=== PATIENT | male | born 1940 | race Caucasian/White ===

== ENCOUNTER 2023-05-20 07:00 | Day surgery (SDC) | payer MEDICARE, OTHER ==
[~2023-05-20] VITALS: Ht 175.3 cm; Wt 98.2 kg
[2023-05-20] MEDS ORDERED: VITA100093 PO (07:31)
[2023-05-20] MEDS ORDERED: MAGN400T2 PO (07:31)
[2023-05-20] MEDS ORDERED: B-12100010 PO (07:31)
[2023-05-20] MEDS ORDERED: ATEN25TA PO (07:31)
[2023-05-20] MEDS ORDERED: PRAD150C6 PO (07:31)
[2023-05-20] MEDS ORDERED: ALFU10TA3 PO (07:31)
[2023-05-20] MEDS ORDERED: PANT40TA29 PO (07:31)
[2023-05-20] MEDS ORDERED: VITMTA PO (07:31)
[2023-05-20] MEDS ORDERED: ROSU20TA61 PO (07:31)
[2023-05-20] MEDS ORDERED: LIDOCAINE 2% 100MG/5ML SDV (FOR ANES.) As Ordered ONE (07:39)
[2023-05-20] MEDS ORDERED: propofoL 200 MG/20 ML VIAL As Ordered ONE (07:39)
[2023-05-20 08:37] VITALS: BP 109/71; TEMP 96.8; O2SAT 98
== END 2023-05-20 08:58 | disposition home or self-care (01) ==
LOC: M SDC 07:00
PROVIDERS: ATTEND Internal Medicine Cardiovascular Disease
DX: I48.19 Other persistent atrial fibrillation (principal); I48.3 Typical atrial flutter; Z79.01 Long term (current) use of anticoagulants; I10 Essential (primary) hypertension; R94.31 Abnormal electrocardiogram [ECG] [EKG]; E78.2 Mixed hyperlipidemia

== ENCOUNTER → 2025-04-08 | Outpatient (CLI) | payer MEDICARE, OTHER ==
[~2025-04-08] MED LIST: ALFU10TA23 PO; ATEN25TA PO; B-12100010 PO; MAGN400T2 PO; PANT40TA29 PO; PRAD150C6 PO; ROSU20TA86 PO; VITA100093 PO; VITMTA PO
== END ==
LOC: M EKG 12:48
PROVIDERS: ATTEND Internal Medicine Cardiovascular Disease
DX: I48.0 Paroxysmal atrial fibrillation (principal)